=== PATIENT | male | born 1955 | race Caucasian/White ===

== ENCOUNTER 2018-10-31 21:33 | Emergency (ER) | payer MEDICARE, OTHER ==
[2018-10-31 21:41] VITALS: RESP 20
[2018-10-31] MEDS ORDERED: KETOROLAC 30 MG/ML 1 ML VIAL IM STA (22:23)
--- NOTE | 2018-10-31 22:38 | XR ---
EXAM: XR Left Shoulder Complete, 2 or More Views CLINICAL HISTORY: ITS.REASON XR Reason: Pain TECHNIQUE: Two or more views of the left shoulder. COMPARISON: No relevant prior studies available. FINDINGS: Bones/joints: No acute fracture or dislocation. Dystrophic calcifications adjacent to the humeral head are compatible with rotator cuff calcific tendinitis. Degenerative changes of the acromioclavicular and glenohumeral joints. Undersurface spurring of the acromion. Inferior subluxation of the humeral head may be related to a rotator cuff tear. Soft tissues: See above. IMPRESSION: Rotator cuff calcific tendinitis. Inferior subluxation of the humeral head may be related to a rotator cuff tear. No acute fracture or dislocation.
[2018-10-31] MEDS ORDERED: ACET/COD 300 MG/30 MG STARTER PACK 6 TAB BTL PO STA (23:06)
--- NOTE | 2018-10-31 23:08 | ED ---
Extremity Problem HPI - General Chief complaint: Extremity Problem,Nontraumatic Stated complaint: Shoulder pain Time Seen by Provider: 10/31/18 21:44 Source: patient, family Mode of arrival: ambulatory Limitations: no limitations - History of Present Illness Initial comments: Patient is 63-year-old male presents emergency Department with left shoulder p ain. Patient reports the pain started 2 days ago and has not resolved. Patient reports limited range of motion due to pain. Patient reports the pain exacerbated with any movement of the shoulder. Patient denies any trauma to the area. Patient reports waking up in the morning and states his shoulder "stopped working." Patient also reports swelling in the forearm the left hand but denies erythema or skin discoloration. Patient also reports mild numbness and tingling. Patient reports taking Tylenol and ibuprofen with minimal improvement. - Related Data Home Medications Medication Instructions Recorded Confirmed Aspirin EC [Ecotrin Low Dose] 81 mg PO DAILY 10/31/18 10/31/18 Fenofibrate 160 mg PO DAILY 10/31/18 10/31/18 Hydrochlorothiazide 12.5 mg PO DAILY 10/31/18 10/31/18 Lisinopril [Prinivil] 20 mg PO DAILY 10/31/18 10/31/18 Omeprazole 20 mg PO DAILY 10/31/18 10/31/18 Pioglitazone [Actos] 45 mg PO DAILY 10/31/18 10/31/18 Potassium Chloride ER [K-Dur 10] 10 meq PO BID 10/31/18 10/31/18 Simvastatin 80 mg PO DAILY 10/31/18 10/31/18 metFORMIN HCL [Glucophage] 500 mg PO TID 10/31/18 10/31/18 sitaGLIPtin PHOSPHATE [Januvia] 100 mg PO DAILY 10/31/18 10/31/18 Allergies Allergy/AdvReac Type Severity Reaction Status Date / Time cat dander Allergy Unknown Verified 10/31/18 22:20 Review of Systems ROS Statement: Those systems with pertinent positive or pertinent negative responses have been documented in the HPI. ROS Other: All systems not noted in ROS Statement are negative. 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 History of Any Multi-Drug Resistant Organisms: None Reported Past Surgical History: Adenoidectomy, Tonsillectomy Additional Past Surgical History / Comment(s): left hand cyst Past Psychological History: No Psychological Hx Reported Smoking Status: Former smoker Past Alcohol Use History: Rare Past Drug Use History: None Reported General Exam Limitations: no limitations General appearance: alert, in no apparent distress, obese Head exam: Present: atraumatic, normocephalic, normal inspection Eye exam: Present: normal appearance, PERRL, EOMI Pupils: Present: normal accommodation ENT exam: Present: normal exam, mucous membranes moist, normal external ear exam Neck exam: Present: normal inspection, full ROM Respiratory exam: Present: normal lung sounds bilaterally Cardiovascular Exam: Present: regular rate, normal rhythm, normal heart sounds Extremities exam: Present: normal inspection, full ROM (Limited range of motion due to pain), tenderness (Tenderness in the left shoulder with palpation), normal capillary refill, other (+2 ulnar and radial pulses bilaterally) Back exam: Present: normal inspection, full ROM Neurological exam: Present: alert, oriented X3 Psychiatric exam: Present: normal affect, normal mood Skin exam: Present: warm, intact, normal color Course Vital Signs 10/31/18 10/31/18 21:35 23:27 Temperature 98.4 F 97 F L Pulse Rate 106 H 88 Respiratory 20 20 Rate Blood Pressure 124/67 146/88 O2 Sat by Pulse 94 L 98 Oximetry Medical Decision Making - Medical Decision Making Patient is 63-year-old male presents emergency Department with left shoulder pain. X-ray of the left shoulder is indicative of rotator cuff calcific tendinitis. Fair subluxation which she will had maybe related to rotator cuff tear. No acute fracture or dislocation. Patient was placed on a sling. Patient advised to follow-up with orthopedics. Patient advised to continue alternating between Tylenol and ibuprofen for pain control. Patient advised to apply cold compress to minimize swelling. Strict return parameters were thoroughly discussed patient was understanding and agreeable. Case discussed physician. Disposition Clinical Impression: Rotator cuff tear arthropathy of left shoulder Disposition: HOME SELF-CARE Condition: Stable Instructions (If sedation given, give patient instructions): Rotator Cuff Injury (ED), Rotator Cuff Tendinitis (ED) Additional Instructions: Please follow with orthopedics. Please return to emergency department if sympt oms worsen. Is patient prescribed a controlled substance at d/c from ED?: No Referrals: KuJovanny pittman DO [Primary Care Provider] - 1-2 days Matthew Benitez DO [Doctor of Osteopathic Medicine] - 1-2 days Time of Disposition: 23:07
[2018-10-31 23:28] VITALS: BP 146/88; PULSE 88; TEMP 97
== END 2018-10-31 23:28 | disposition home or self-care (01) ==
LOC: EC 21:33
DX: M75.102 Unspecified rotator cuff tear or rupture of left shoulder, not specified as traumatic (principal); M12.812 Other specific arthropathies, not elsewhere classified, left shoulder; E11.9 Type 2 diabetes mellitus without complications; E78.5 Hyperlipidemia, unspecified; I10 Essential (primary) hypertension; G47.30 Sleep apnea, unspecified; Z79.82 Long term (current) use of aspirin; Z79.84 Long term (current) use of oral hypoglycemic drugs; Z79.899 Other long term (current) drug therapy; Z91.09 Other allergy status, other than to drugs and biological substances; Z87.891 Personal history of nicotine dependence
CPT/HCPCS: 73030; 99283; 96372; J1885

== ENCOUNTER → 2019-02-12 | Outpatient (CLI) | payer MEDICARE | END | disposition home or self-care (01) | LOC: RADMRIMAIN 21:25 | PROVIDERS: ATTEND Orthopaedic Surgery Sports Medicine | DX: Z53.9 Procedure and treatment not carried out, unspecified reason (principal) ==

== ENCOUNTER 2019-12-24 15:54 | Emergency (ER) | payer MEDICARE ==
[2019-12-24 15:58] VITALS: BP 176/82; PULSE 91; RESP 16; TEMP 97.9
--- NOTE | 2019-12-24 16:40 | ED ---
General Adult HPI - General Chief complaint: Extremity Problem,Nontraumatic Stated complaint: Hand swelling Time Seen by Provider: 12/24/19 16:15 Source: patient Mode of arrival: ambulatory Limitations: no limitations - History of Present Illness Initial comments: Dictation was produced using [employer] dictation software. please excuse any grammatical, word or spelling errors. This patient was cared for during a federal and state declared state of emergency secondary to Covid 19 Chief Complaint: 64-year-old male presents with right wrist pain History of Present Illness: And is a 64-year-old male for the last one half days he's been having wrist pain. Patient denies any trauma to the arm or hand. Reports that he woke up one day with pain in his right wrist. He states that the pain is to his medial right wrist. States that swelling which prompted him to come to the emergency department. Denies any constitutional symptoms. States that perhaps maybe he might have hit his arm on something because he moves a lot when he sleeps. The ROS documented in this emergency department record has been reviewed and confirmed by me. Those systems with pertinent positive or negative responses have been documented in the HPI. All other systems are other negative and/or noncontributory. PHYSICAL EXAM: General Impression: Alert and oriented x3, not in acute distress HEENT: Normocephalic atraumatic, extra-ocular movements intact, pupils equal and reactive to light bilaterally, mucous membranes moist. Cardiovascular: Heart regular rate and rhythm Chest: Able to complete full sentences, no retractions, no tachypnea Abdomen: abdomen soft, non-tender, non-distended, no organomegaly Musculoskeletal: Pulses present and equal in all extremities, no peripheral edema Right upper extremity: Mild swelling around the hyper thenar eminence of the right hand. There is also pinpoint tenderness over the medial right wrist. Neuro vascularly intact Motor: no focal deficits noted Neurological: CN II-XII grossly intact, no focal motor or sensory deficits noted Skin: Intact with no visualized rashes Psych: Normal affect and mood ED course: 64-year-old male presents with right wrist pain for 2-1/2 days. Vital signs upon arrival shows 89% on room air. Rest of vital signs within acceptable limits. Patient is questioned about the hypoxia. He states that he does have hypoxia and sometimes was oxygen at home. He does also have severe sleep apnea. X-ray of the right hand was performed showing no acute abnormality. At this point is unclear what is causing patient's symptoms. He is given prescription for pain medications. I did given prescription for Keflex and to take in a watch and wait fashion. He is told to wait 2 or 3 days see if his symptoms get worse that he should start taking the Keflex. He is given outpatient referral to orthopedic surgery for concerns of possible tendinitis. Return parameters discussed. Patient will be discharged. - Related Data Home Medications Medication Instructions Recorded Confirmed Aspirin EC [Ecotrin Low Dose] 81 mg PO DAILY 10/31/18 10/31/18 Fenofibrate 160 mg PO DAILY 10/31/18 10/31/18 Hydrochlorothiazide 12.5 mg PO DAILY 10/31/18 10/31/18 [hydroCHLOROthiazide] Omeprazole 20 mg PO DAILY 10/31/18 10/31/18 Pioglitazone [Actos] 45 mg PO DAILY 10/31/18 10/31/18 Potassium Chloride ER [K-Dur 10] 10 meq PO BID 10/31/18 10/31/18 Simvastatin 80 mg PO DAILY 10/31/18 10/31/18 lisinopriL [Prinivil] 20 mg PO DAILY 10/31/18 10/31/18 metFORMIN HCL [Glucophage] 500 mg PO TID 10/31/18 10/31/18 sitaGLIPtin PHOSPHATE [Januvia] 100 mg PO DAILY 10/31/18 10/31/18 Previous Rx's Medication Instructions Recorded Cephalexin [Keflex] 500 mg PO Q6HR 5 Days #20 cap 12/24/19 HYDROcodone/APAP 5-325MG [[place] 1 tab PO Q6HR PRN 3 Days #12 tab 12/24/19 5-325] Allergies Allergy/AdvReac Type Severity Reaction Status Date / Time cat dander Allergy Unknown Verified 12/24/19 15:55 Review of Systems ROS Statement: Those systems with pertinent positive or pertinent negative responses have been documented in the HPI. ROS Other: All systems not noted in ROS Statement are negative. 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 History of Any Multi-Drug Resistant Organisms: None Reported Past Surgical History: Adenoidectomy, Tonsillectomy Additional Past Surgical History / Comment(s): left hand cyst Past Psychological History: No Psychological Hx Reported Smoking Status: Former smoker Past Alcohol Use History: Rare Past Drug Use History: None Reported General Exam Limitations: no limitations Course Vital Signs 12/24/19 12/24/19 15:55 16:50 Temperature 97.9 F Pulse Rate 91 Respiratory 16 Rate Blood Pressure 176/82 O2 Sat by Pulse 89 L 91 L Oximetry Disposition Clinical Impression: Hand pain Disposition: HOME SELF-CARE Condition: Good Instructions (If sedation given, give patient instructions): Tendinitis (ED) Prescriptions: Cephalexin [Keflex] 500 mg PO Q6HR 5 Days #20 cap HYDROcodone/APAP 5-325MG [[place] 5-325] 1 tab PO Q6HR PRN 3 Days #12 tab PRN Reason: Severe Pain Is patient prescribed a controlled substance at d/c from ED?: Yes Referrals: Matthew Benitez DO [Doctor of Osteopathic Medicine] - 1-2 days Jovanny Bui DO [Primary Care Provider] - 1-2 days Time of Disposition: 17:28
--- NOTE | 2019-12-24 16:58 | XR ---
EXAMINATION TYPE: XR hand complete RT DATE OF EXAM: 12/24/2019 COMPARISON: NONE HISTORY: Swelling TECHNIQUE: 3 views FINDINGS: There is thickening of the base of the fifth metacarpal consistent with an old injury. I se e no acute fracture nor dislocation. There is no evidence of a foreign body. IMPRESSION: No acute abnormality of the right hand. There is probably an old healed fifth metacarpal fracture.
== END 2019-12-24 18:00 | disposition home or self-care (01) ==
LOC: EC 15:54
DX: M25.531 Pain in right wrist (principal); R22.31 Localized swelling, mass and lump, right upper limb; E11.9 Type 2 diabetes mellitus without complications; E78.5 Hyperlipidemia, unspecified; I10 Essential (primary) hypertension; G47.33 Obstructive sleep apnea (adult) (pediatric); Z79.84 Long term (current) use of oral hypoglycemic drugs; Z79.899 Other long term (current) drug therapy; Z91.048 Other nonmedicinal substance allergy status; Z87.891 Personal history of nicotine dependence
CPT/HCPCS: 99283